=== PATIENT | female | born 1945 ===

== ENCOUNTER 2020-04-27 09:30 | Inpatient (IN) | payer OTHER ==
[~2020-04-27] VITALS: Ht 149.9 cm; Wt 63.5 kg
[2020-05-01] MEDS ORDERED: PROTONIX20 MG PO (11:27)
[2020-05-01] MEDS ORDERED: LIPITOR40 M1 PO (11:28)
[2020-05-01] MEDS ORDERED: [UNRECOGNIZED DRUG - OTHER] (11:28)
== END 2020-05-05 15:42 | disposition home or self-care (01) | DRG 331 ==
LOC: O/R 05-03 05:49 → SURG 05-03 05:49 → SURH 05-03 09:30 → SURG 05-03 13:13 → SURH 05-03 15:00 → SURG 05-05 15:42
PROVIDERS: ADMIT Colon & Rectal Surgery; ATTEND Colon & Rectal Surgery
PROC: 0DBN4ZZ Excision of Sigmoid Colon, Percutaneous Endoscopic Approach (ICD-10-PCS; 2020-05-03)
PROC: 0DJD8ZZ Inspection of Lower Intestinal Tract, Via Natural or Artificial Opening Endoscopic (ICD-10-PCS; 2020-05-03)
PROC: 0DTP4ZZ Resection of Rectum, Percutaneous Endoscopic Approach (ICD-10-PCS; principal; 2020-05-03 15:00)
DX: K57.30 Diverticulosis of large intestine without perforation or abscess without bleeding (principal)

== ENCOUNTER 2021-07-06 07:25 | Day surgery (SDC) | payer OTHER ==
[~2021-07-06 07:25] MED LIST: LIPITOR40 M1 PO; PROTONIX20 MG PO; [UNRECOGNIZED DRUG - OTHER]
== END 2021-07-06 15:17 | disposition home or self-care (01) ==
LOC: AMB-ENDOS 07:25
PROVIDERS: ATTEND Colon & Rectal Surgery
DX: K62.89 Other specified diseases of anus and rectum (principal); K64.0 First degree hemorrhoids; Z20.822 Contact with and (suspected) exposure to COVID-19